=== PATIENT | female | born 1960 | race African-American/Black ===

== ENCOUNTER 2021-09-10 16:00 | Inpatient (IN) ==
[2021-09-10 20:23] LABS: Arterial Base Excess iSTAT 5 MMOL/L (-2.5-2.5); Arterial Bicarbonate iSTAT 29.5 MMOL/L (20-26); Arterial O2 Saturation iSTAT 94 % (95-100); Arterial PCO2 iSTAT 42 MM HG (35-48); Arterial PO2 iSTAT 67 MM HG (80-95); Arterial Total CO2 iSTAT 31 MMO/L (23-27); Arterial pH iSTAT 7.459 (7.35-7.45)
[2021-09-10] MEDS ORDERED: ALBUTEROL 2.5 MG/3 ML NEB RESP TX PRN (20:36)
[2021-09-10] MEDS ORDERED: ACETAMINOPHEN 325 MG TABLET PO PRN (20:38)
[2021-09-10] MEDS ORDERED: ONDANSETRON 4 MG/2 ML VIAL IV PRN (20:38)
[2021-09-10] MEDS ORDERED: CALCIUM CARBONATE CHEW 500 MG TABLET PO PRN (20:38)
[2021-09-10] MEDS ORDERED: hydrALAZINE 20 MG/1 ML VIAL IV PRN (20:38)
[2021-09-10 20:39] LABS: Basophils # 0.1 10*3/uL (0.0-0.2); Basophils % 0.3 % (0.0-0.8); Eosinophils # 0.1 10*3/uL (0.0-0.87); Eosinophils % 0.4 % (0.00-10.9); Hematocrit 35.3 VOL% (35.7-47.0); Hemoglobin 11.1 GM/DL (12.0-16.0); Immature Granulocytes % 0.8 %; Immature Granulocytes Absolute 0.14 #; Lymphocytes # 0.7 10*3/uL (1.4-4.0); Lymphocytes % 4.1 % (21.3-54.2); Mean Corpuscular HGB Conc 31.4 GM/DL (32-36); Mean Corpuscular Volume 90.5 FL (87-102); Mean Platelet Volume 9.4 FL (9.6-12.0); Monocytes # 0.8 10*3/uL (0.11-0.8); Monocytes % 4.4 % (1.7-12.7); Platelet Count 317 T/CUMM (130-400); Red Cell Distribution Width 14.8 % (9.3-17.3); White Blood Count 17.2 T/CUMM (4-12)
[2021-09-10 21:00] LABS: Alanine Aminotransferase 26 U/L (13-56); Albumin 2.2 G/DL (3.4-5.0); Alkaline Phosphatase 130 U/L (45-117); Aspartate Amino Transferase 44 U/L (0-37); Blood Urea Nitrogen 30 MG/DL (7-18); Calcium 8.9 MG/DL (8.5-10.1); Carbon Dioxide 30 MMOL/L (21-32); Chloride 103 MMOL/L (98-107); Estimated Glom Filtration Rate 18 ML/MIN; Glucose 120 MG/DL (74-106); Osmolality,Calculated 285.4 MOS/KG (273-304); Potassium 4.3 MMOL/L (3.5-5.1); Sodium 140 MMOL/L (136-145); Total Protein 7.2 G/DL (6.4-8.2)
[2021-09-10] MEDS ORDERED: LABETALOL 20 MG/4 ML SYRINGE IV ONE ×2 (21:00→21:05)
[2021-09-10] MEDS ORDERED: ENOXAPARIN 40 MG/0.4 ML SYRINGE SUBCUT SCH (21:00)
[2021-09-10 21:13] LABS: Lymphocytes 2 % (20-55); Total Cells Counted 100
[2021-09-10 21:14] LABS: Platelet Estimate Adequate
[2021-09-10] MEDS ORDERED: MAGNESIUM SULF RIDER 2 GM/50 ML PREMIX IV PRN (21:29)
[2021-09-10] MEDS ORDERED: MAGNESIUM SULF RIDER 4 GM/100 ML PREMIX IV PRN (21:29)
[2021-09-10] MEDS: ENOXAPARIN 30 MG/0.3 ML SYRINGE SUBCUT SCH (21:33)
[2021-09-10] MEDS: guaiFENesin/DM ER 600-30 MG TABLET PO SCH (21:33)
[2021-09-10] MEDS: FUROSEMIDE 40 MG/4 ML VIAL IV SCH (21:34)
[2021-09-10] MEDS: PIPERACILLIN/TAZOBACTAM 3,375 MG in SODIUM CHLORIDE 0.9% 100 ML IV SCH (23:45)
[2021-09-11] MEDS: ALBUTEROL/IPRATROPIUM 3 ML NEB RESP TX SCH ×4 (01:00→19:24)
[2021-09-11 06:20] LABS: Basophils % 0.3 % (0.0-0.8); Eosinophils # 0.1 10*3/uL (0.0-0.87); Eosinophils % 0.6 % (0.00-10.9); Hematocrit 31.1 VOL% (35.7-47.0); Immature Granulocytes % 0.6 %; Immature Granulocytes Absolute 0.09 #; Lymphocytes % 6.7 % (21.3-54.2); Mean Corpuscular HGB Conc 32.2 GM/DL (32-36); Mean Corpuscular Volume 89.6 FL (87-102); Mean Platelet Volume 9.8 FL (9.6-12.0); Monocytes # 0.8 10*3/uL (0.11-0.8); Monocytes % 5.1 % (1.7-12.7); Neutrophils % 86.7 % (38.7-73.9); Platelet Count 267 T/CUMM (130-400); Red Blood Count 3.47 MC/CUMM (3.8-5.5); Red Cell Distribution Width 14.8 % (9.3-17.3); White Blood Count 15.6 T/CUMM (4-12)
[2021-09-11 06:31] LABS: Calcium 8.6 MG/DL (8.5-10.1); Osmolality,Calculated 284.5 MOS/KG (273-304); Potassium 3.9 MMOL/L (3.5-5.1)
[2021-09-11] MEDS ORDERED: MAGNESIUM SULF RIDER 4 GM/100 ML PREMIX IV ONE (09:00)
[2021-09-11] MEDS: FUROSEMIDE 100 MG/10 ML VIAL IV SCH ×2 (09:02→16:05)
[2021-09-11] MEDS: guaiFENesin/DM ER 600-30 MG TABLET PO SCH ×2 (09:03→21:23)
[2021-09-11] MEDS: PANTOPRAZOLE 40 MG TABLET PO SCH (09:03)
[2021-09-11] MEDS: METOPROLOL SUCCINATE XL 25 MG TABLET PO SCH (09:03)
[2021-09-11] MEDS: PIPERACILLIN/TAZOBACTAM 3,375 MG in SODIUM CHLORIDE 0.9% 100 ML IV SCH ×2 (09:07→22:42)
[2021-09-11] MEDS: FUROSEMIDE 40 MG/4 ML VIAL IV SCH (10:46)
[2021-09-11] MEDS ORDERED: DOCUSATE SODIUM 100 MG CAPSULE PO PRN (21:00)
[2021-09-11] MEDS: POLYETHYLENE GLYCOL POWDER 17 GM PACK PO PRN (21:22)
[2021-09-11] MEDS: ENOXAPARIN 30 MG/0.3 ML SYRINGE SUBCUT SCH (21:23)
[2021-09-11 23:42] LABS: Mucus,Urine Occasional /LPF (Occasional); RBC,Urine 1 /HPF (0-4); Squamous Epithelial Cell,Urine Occasional /HPF (0-10); Urine Appearance Clear (Clear); Urine Color Yellow (Yellow)
[2021-09-11 23:43] LABS: Total Protein 12 Hr Ur Result 593 MG/12HR (0-75)
[2021-09-11 23:43] LABS: Bilirubin,Urine Negative (Negative); Blood, Urine Trace mg/dL (Negative); Glucose,Urine (UA) Negative (Negative); Ketones,Urine Negative (Negative); Nitrite,Urine Negative (Negative); Protein,Urine Negative (Negative); Urine Specific Gravity 1.015 (1.001-1.035); Urine Urobilinogen 0.2 eU/dL (<2.0); Urine pH 6.5 (4.5-8.0)
[2021-09-12] MEDS: ALBUTEROL/IPRATROPIUM 3 ML NEB RESP TX SCH ×4 (00:05→19:20)
[2021-09-12] MEDS: MORPHINE 2 MG/1 ML SYRINGE IV PRN ×2 (03:00→21:16)
[2021-09-12 04:31] LABS: Basophils % 0.4 % (0.0-0.8); Eosinophils # 0.2 10*3/uL (0.0-0.87); Eosinophils % 2.1 % (0.00-10.9); Hematocrit 33.3 VOL% (35.7-47.0); Hemoglobin 10.8 GM/DL (12.0-16.0); Immature Granulocytes % 0.5 %; Immature Granulocytes Absolute 0.05 #; Lymphocytes # 0.7 10*3/uL (1.4-4.0); Lymphocytes % 6.5 % (21.3-54.2); Mean Corpuscular HGB Conc 32.4 GM/DL (32-36); Mean Corpuscular Volume 87.6 FL (87-102); Mean Platelet Volume 10.1 FL (9.6-12.0); Monocytes # 0.6 10*3/uL (0.11-0.8); Monocytes % 5.5 % (1.7-12.7); Platelet Count 258 T/CUMM (130-400); Red Cell Distribution Width 14.2 % (9.3-17.3); White Blood Count 10.1 T/CUMM (4-12)
[2021-09-12 04:46] LABS: Osmolality,Calculated 276.2 MOS/KG (273-304); Potassium 3.5 MMOL/L (3.5-5.1)
[2021-09-12] MEDS: FUROSEMIDE 100 MG/10 ML VIAL IV SCH (07:55)
[2021-09-12] MEDS ORDERED: FUROSEMIDE 100 MG/10 ML VIAL IV SCH (09:00)
[2021-09-12] MEDS: METOPROLOL SUCCINATE XL 25 MG TABLET PO SCH (09:46)
[2021-09-12] MEDS: PANTOPRAZOLE 40 MG TABLET PO SCH (09:46)
[2021-09-12] MEDS: guaiFENesin/DM ER 600-30 MG TABLET PO SCH ×2 (09:46→21:20)
[2021-09-12 10:37] LABS: Albumin (SPE) 3.1 G/DL (3.2-5.3); Albumin (SPE) Rel % 44.4 %; Alpha 1 (SPE) 0.5 G/DL (0.1-0.4); Alpha 1 (SPE) Rel % 7.6 %; Alpha 2 (SPE) 0.9 G/DL (0.4-1.0); Alpha 2 (SPE) Rel % 13.1 %; Beta (SPE) 0.8 G/DL (0.5-1.1); Beta (SPE) Rel % 11.2 %; Gamma (SPE) 1.7 G/DL (0.7-1.7); Gamma (SPE) Rel % 23.7 %
[2021-09-12] MEDS: MEROPENEM 500 MG in SODIUM CHLORIDE 0.9% 100 ML IV SCH ×2 (13:43→21:11)
[2021-09-12] MEDS: ENOXAPARIN 30 MG/0.3 ML SYRINGE SUBCUT SCH (21:20)
[2021-09-12] MEDS: POLYETHYLENE GLYCOL POWDER 17 GM PACK PO PRN (21:20)
[2021-09-13 04:22] LABS: Basophils % 0.3 % (0.0-0.8); Eosinophils # 0.3 10*3/uL (0.0-0.87); Eosinophils % 2.2 % (0.00-10.9); Hematocrit 33.5 VOL% (35.7-47.0); Hemoglobin 10.8 GM/DL (12.0-16.0); Immature Granulocytes % 0.8 %; Immature Granulocytes Absolute 0.09 #; Lymphocytes # 0.9 10*3/uL (1.4-4.0); Lymphocytes % 7.8 % (21.3-54.2); Mean Corpuscular HGB Conc 32.2 GM/DL (32-36); Mean Corpuscular Volume 87.2 FL (87-102); Mean Platelet Volume 9.9 FL (9.6-12.0); Monocytes # 0.8 10*3/uL (0.11-0.8); Monocytes % 7.1 % (1.7-12.7); Neutrophils % 81.8 % (38.7-73.9); Platelet Count 306 T/CUMM (130-400); Red Blood Count 3.84 MC/CUMM (3.8-5.5); Red Cell Distribution Width 13.8 % (9.3-17.3); White Blood Count 11.6 T/CUMM (4-12)
[2021-09-13 05:30] LABS: Calcium 9.2 MG/DL (8.5-10.1); Osmolality,Calculated 275.4 MOS/KG (273-304); Potassium 3.6 MMOL/L (3.5-5.1)
[2021-09-13] MEDS: MEROPENEM 500 MG in SODIUM CHLORIDE 0.9% 100 ML IV SCH (06:25)
[2021-09-13] MEDS: ALBUTEROL/IPRATROPIUM 3 ML NEB RESP TX SCH ×4 (07:38→20:12)
[2021-09-13] MEDS: cefTRIAXone 1,000 MG in SODIUM CHLORIDE 0.9% 100 ML IV SCH (09:16)
[2021-09-13] MEDS: guaiFENesin/DM ER 600-30 MG TABLET PO SCH ×2 (09:16→21:05)
[2021-09-13] MEDS: FUROSEMIDE 40 MG TABLET PO SCH (09:17)
[2021-09-13] MEDS: METOPROLOL SUCCINATE XL 25 MG TABLET PO SCH (09:17)
[2021-09-13] MEDS: PANTOPRAZOLE 40 MG TABLET PO SCH (09:17)
[2021-09-13] MEDS: ENOXAPARIN 30 MG/0.3 ML SYRINGE SUBCUT SCH (21:07)
[2021-09-14] MEDS: ALBUTEROL/IPRATROPIUM 3 ML NEB RESP TX SCH ×5 (00:55→23:42)
[2021-09-14 05:37] LABS: Calcium 9.4 MG/DL (8.5-10.1); Osmolality,Calculated 276.4 MOS/KG (273-304); Potassium 3.3 MMOL/L (3.5-5.1)
[2021-09-14] MEDS: cefTRIAXone 1,000 MG in SODIUM CHLORIDE 0.9% 100 ML IV SCH (08:44)
[2021-09-14] MEDS: guaiFENesin/DM ER 600-30 MG TABLET PO SCH ×2 (08:45→20:18)
[2021-09-14] MEDS: METOPROLOL SUCCINATE XL 25 MG TABLET PO SCH (08:45)
[2021-09-14] MEDS: FUROSEMIDE 40 MG TABLET PO SCH (08:45)
[2021-09-14] MEDS: PANTOPRAZOLE 40 MG TABLET PO SCH (08:45)
[2021-09-14] MEDS ORDERED: POTASSIUM CHLORIDE 20 MEQ TABLET PO ONE (10:11)
[2021-09-14 13:28] LABS: Folate 7.17 NG/ML (5.38-24.0)
[2021-09-14] MEDS: POLYETHYLENE GLYCOL POWDER 17 GM PACK PO PRN (20:18)
[2021-09-14] MEDS: ENOXAPARIN 30 MG/0.3 ML SYRINGE SUBCUT SCH (20:18)
[2021-09-15 05:16] LABS: Basophils # 0.1 10*3/uL (0.0-0.2); Basophils % 0.5 % (0.0-0.8); Eosinophils # 0.3 10*3/uL (0.0-0.87); Eosinophils % 2.4 % (0.00-10.9); Hematocrit 34.3 VOL% (35.7-47.0); Hemoglobin 10.9 GM/DL (12.0-16.0); Immature Granulocytes % 0.7 %; Immature Granulocytes Absolute 0.09 #; Mean Corpuscular HGB Conc 31.8 GM/DL (32-36); Mean Corpuscular Volume 87.1 FL (87-102); Mean Platelet Volume 9.9 FL (9.6-12.0); Monocytes # 0.9 10*3/uL (0.11-0.8); Monocytes % 7.3 % (1.7-12.7); Neutrophils % 81.1 % (38.7-73.9); Platelet Count 348 T/CUMM (130-400); Red Blood Count 3.94 MC/CUMM (3.8-5.5); Red Cell Distribution Width 13.5 % (9.3-17.3); White Blood Count 12.5 T/CUMM (4-12)
[2021-09-15 05:34] LABS: Calcium 9.3 MG/DL (8.5-10.1); Osmolality,Calculated 273.5 MOS/KG (273-304); Potassium 3.5 MMOL/L (3.5-5.1)
[2021-09-15 05:35] LABS: Calcium 9.4 MG/DL (8.5-10.1); Osmolality,Calculated 270.8 MOS/KG (273-304); Potassium 3.4 MMOL/L (3.5-5.1)
[2021-09-15] MEDS: ALBUTEROL/IPRATROPIUM 3 ML NEB RESP TX SCH ×2 (07:15→13:15)
[2021-09-15] MEDS: FUROSEMIDE 40 MG TABLET PO SCH (08:07)
[2021-09-15] MEDS: cefTRIAXone 1,000 MG in SODIUM CHLORIDE 0.9% 100 ML IV SCH (08:07)
[2021-09-15] MEDS: PANTOPRAZOLE 40 MG TABLET PO SCH (08:08)
[2021-09-15] MEDS: guaiFENesin/DM ER 600-30 MG TABLET PO SCH (08:08)
[2021-09-15] MEDS: METOPROLOL SUCCINATE XL 25 MG TABLET PO SCH (08:08)
[2021-09-15 11:45] VITALS: BP 144/91
[2021-09-15] MEDS ORDERED: POTASSIUM CHLORIDE 20 MEQ TABLET PO ONE (13:00)
[2021-09-15] MEDS ORDERED: FERROUS SULFATE 325 MG TABLET PO SCH (21:00)
== END 2021-09-15 16:28 | disposition home or self-care (01) | DRG 291 ==
LOC: N.ICU 19:55 → SUATTDRO 19:55 → N.5E 09-13 16:07
PROVIDERS: ADMIT Internal Medicine; ATTEND Internal Medicine